=== PATIENT | male | born 1975 | race Hispanic/Latino ===

== ENCOUNTER 2020-08-06 05:45 | Day surgery (SDC) | payer MEDICAID ==
[2020-08-06] VITALS (7 sets, daily range): BP systolic 109–166; BP diastolic 79–106
[~2020-08-06] VITALS: Ht 167.6 cm; Wt 97.5 kg
[~2020-08-06 05:45] MED LIST: AMLO-257 PO; CABE0.5T2 PO; DIVA125C11 PO; EMPA25TA PO; INSLAN SQ; LEVO50CA4 PO; LOSA100T58 PO; LOVA20TA3 PO; MELO-108 PO; METF-526 PO; METO100T14 PO; OMEP40CA21 PO; SEMA1PEN3 SQ; SERT-440 PO; TEST200V22 IM
[2020-08-06] MEDS ORDERED: 0.9%NACL 1000ML 1,000 ML IV ONE (06:19)
[2020-08-06] MEDS ORDERED: LIDOCAINE HCL 1% 20 ML VIAL ONE (07:14)
[2020-08-06] MEDS ORDERED: PROPOFOL 10 MG/ML 20ML VIAL IV ONE (07:14)
== END 2020-08-06 08:00 | disposition home or self-care (01) ==
LOC: DAH 05:45 → ENDO 05:45
PROVIDERS: ATTEND Internal Medicine Gastroenterology
DX: K21.9 Gastro-esophageal reflux disease without esophagitis (principal); I12.9 Hypertensive chronic kidney disease with stage 1 through stage 4 chronic kidney disease, or unspecified chronic kidney disease; E11.22 Type 2 diabetes mellitus with diabetic chronic kidney disease; N18.9 Chronic kidney disease, unspecified; E03.9 Hypothyroidism, unspecified; F32.9 Major depressive disorder, single episode, unspecified; E78.5 Hyperlipidemia, unspecified; Z79.4 Long term (current) use of insulin; Z79.899 Other long term (current) drug therapy; Z20.822 Contact with and (suspected) exposure to COVID-19
CPT/HCPCS: 43239; 82948 ×2; 87635; 88305; 88342; A4215 ×2; A4221; A4222; A4223; A4606; A4620; A4657; A4663; C9803; J3490; J7030; J2704

== ENCOUNTER → 2020-08-28 | Outpatient (CLI) | payer MEDICAID | END | disposition home or self-care (01) | LOC: RAH 11:28 | PROVIDERS: ATTEND Internal Medicine Gastroenterology | DX: R11.0 Nausea (principal); R14.0 Abdominal distension (gaseous) | CPT/HCPCS: 78264; A9541 ==

== ENCOUNTER 2020-12-15 14:19 | Emergency (ER) | payer MEDICAID ==
[~2020-12-15] VITALS: Ht 165.1 cm; Wt 86.6 kg
[2020-12-15 14:59] LABS: BASOPHILS % (AUTO) 0.4 % (0.0-5.0); HEMATOCRIT 42.8 % (42-54); LYMPHOCYTES % (AUTO) 26.4 % (21.0-51.0); MEAN CORPUSCULAR HEMOGLOBIN 29.9 pg (27.0-33.0); MEAN CORPUSCULAR HGB CONC 36.4 g/dL (32.0-36.0); MONOCYTES % (AUTO) 7.3 % (3.0-13.0); NEUTROPHILS % (AUTO) 64.4 % (40.0-77.0); PLATELET COUNT (AUTO) 171 K/uL (130-400); RED BLOOD CELL COUNT(AUTO) 5.22 MIL/uL (4.50-6.20); RED CELL DISTRIBUTION WIDTH 14.4 % (11.0-15.5); WHITE BLOOD COUNT (AUTO) 7.4 K/uL (4.8-10.8)
[2020-12-15 15:08] LABS: CREATININE 1.5 mg/dL (0.5-1.5); POTASSIUM 3.2 mmol/L (3.5-5.1)
[2020-12-15 15:18] LABS: ALBUMIN 3.3 g/dL (3.5-5.0); BILIRUBIN,TOTAL 0.7 mg/dL (0.2-1.0); TOTAL PROTEIN, SERUM 7.4 g/dL (6.0-8.3)
[2020-12-15 15:26] LABS: B-TYPE NATRIURETIC PEPTIDE 23 pg/mL (0-100)
[2020-12-15 15:34] LABS: APPEARANCE,URINE Clear (CLEAR); BILIRUBIN,URINE Negative (NEGATIVE); COLOR,URINE Yellow (YELLOW); GLUCOSE, URINE (UA) >=1000 mg/dL (NEGATIVE); KETONES,URINE 15 mg/dL (NEGATIVE); LEUKOCYTE ESTERASE ,URINE Negative (NEGATIVE); NITRATE,URINE Negative (NEGATIVE); OCCULT BLOOD,URINE Negative (NEGATIVE); PH,URINE 6.5 (5.0-8.0); PROTEIN,URINE POS 2+ mg/dL (NEGATIVE)
[2020-12-15 15:42] LABS: AMPHET/METH SCREEN,URINE NEGATIVE (NEGATIVE); BARBITURATE SCREEN, URINE NEGATIVE (NEGATIVE); BENZODIAZEPINES SCREEN,URINE NEGATIVE (NEGATIVE); CANNABINOID SCREEN,URINE NEGATIVE (NEGATIVE); COCAINE SCREEN,URINE NEGATIVE (NEGATIVE); OPIATE SCREEN,URINE NEGATIVE (NEGATIVE); PHENCYCLIDINE SCREEN,URINE NEGATIVE (NEGATIVE)
[2020-12-15 15:44] LABS: BACTERIA,URINE Few /HPF (None Seen); RBC,URINE 0-1 /HPF (0-1); SQUAMOUS EPITHELIAL CELL,UR Rare /HPF (0-2); WBC,URINE 0-1 /HPF (0-1)
[2020-12-15] MEDS ORDERED: 0.9%NACL 1000ML 1,000 ML IV ONE (17:00)
[2020-12-15 17:30] VITALS: BP 115/78
[2020-12-15] MEDS ORDERED: MECLIZINE HCL 25 MG TABLET PO ONE (18:30)
== END 2020-12-15 18:00 | disposition home or self-care (01) ==
LOC: EDH 14:19
DX: E86.0 Dehydration (principal); E11.9 Type 2 diabetes mellitus without complications; I10 Essential (primary) hypertension; E66.9 Obesity, unspecified; Z91.19 Patient's noncompliance with other medical treatment and regimen; Z91.14 Patient's other noncompliance with medication regimen; Z79.1 Long term (current) use of non-steroidal anti-inflammatories (NSAID); Z79.899 Other long term (current) drug therapy; Z79.4 Long term (current) use of insulin
CPT/HCPCS: 36415; 70450; 71045; 80053; 80305; 81001; 82550; 83880; 84484; 85025; 93005; 96360; 99285; J7030

== ENCOUNTER 2024-07-15 13:15 | Emergency (ER) | payer BC ==
[~2024-07-15] VITALS: Ht 165.1 cm; Wt 83.5 kg
[~2024-07-15 13:15] MED LIST changes: -AMLO-257 PO; +AMLO5TAB4 PO; -CABE0.5T2 PO; -DIVA125C11 PO; -EMPA25TA PO; +HYDR25 PO; -INSLAN SQ; -LEVO50CA4 PO; +LISI40TA9 PO; -LOSA100T58 PO; -LOVA20TA3 PO; -MELO-108 PO; -METF-526 PO; -METO100T14 PO; +METO200T37 PO; -OMEP40CA21 PO; +SEMA0.258 SQ; -SEMA1PEN3 SQ; -SERT-440 PO; -TEST200V22 IM
--- NOTE | 2024-07-15 13:40 | NUR ---
patient states that he feels numbness to just below and above the level of the fistula that was inserted in April in his left antecubital area, started this am. fistula is not being used yet, it has not "matured", no bruit no thrill, no buldging noted in that area. patient does have "feeling" to the rest of that arm, numbness is just above and just below the antecubital area. 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 Salazar, mom is at bedside
--- NOTE | 2024-07-15 15:41 | HMCIMG ---
Exam Type: US VENOUS DOPPLER UNILATERAL Clinical Information: R/O OCCLUSION OR DVT Comparison: None Findings: The examination shows normal deep venous system. There is normal compressibility at all levels. There is no intraluminal clot. There is no occlusion. Adequate response is obtained on augmentation. Impression: No evidence of DVT.
[2024-07-15 15:45] VITALS: BP 148/76; PULSE 64; RESP 15; TEMP 97.6; O2SAT 99
--- NOTE | 2024-07-15 15:54 | ERN ---
General Chief Complaint: Upper Extremity Pain/Injury Stated Complaint: FISTULA FEELING NUMB IN RT ARM SINCE THIS AM History of Present Illness Initial Comments 49-year-old male came in for numbness and on the dialysis fistula site on right upper extremity. Patient otherwise has no concerns. Allergies: Coded Allergies: No Known Drug Allergies (Unverified Allergy, Unknown, 08/05/20) Home Meds Active Scripts Hydralazine HCl (Apresoline) 25 Mg Tab, 50 MG PO TID, #90 TAB 2 Refills Prov:VICTOR MANUEL DANIELS MD 04/15/24 Amlodipine Besylate (Norvasc 5Mg Tab) 5 Mg Tablet, 10 MG PO DAILY, #30 TAB 0 R efills Prov:VICTOR MANUEL DANIELS MD 04/15/24 Reported Medications Semaglutide (Ozempic) 0.25 Mg/0.368 Ml Pen.injctr, 0.25 MG SQ AD 04/08/24 Metoprolol Succinate (Metoprolol Succinate) 200 Mg Tab.er.24h, 100 MG PO DAILY, TAB 04/08/24 Lisinopril (Lisinopril) 40 Mg Tablet, 40 MG PO DAILY, TAB 04/08/24 Past Medical History Past Medical History: Diabetes-Type II, Hypertension, Renal Failure Past Surgical History: Other Surgical History Other: HERNIA REPAIR, FISTULA APRIL 2024 Family History Family History: Negative Social History Social History: Lives with family ROS Dictation CONSTITUTIONAL: Negative except for HPI HEAD/FACE: Negative except for HPI EENT: Negative except for HPI RESPIRATORY: Negative except for HPI GASTROINTESTINAL/ABDOMINAL: Negative except for HPI GENITOURINARY: Negative except for HPI MUSCULOSKELETAL: Negative except for HPI INTEGUMENTARY: Negative except for HPI NEUROLOGICAL/PSYCH: Negative except for HPI HEMATOLOGIC/LYMPHATIC: Negative except for HPI All Systems Negative, Except as noted above. 13 point review of systems assessed and all negative except for above. Physical Exam Physical Exam Dictation Vital Signs reviewed General Appearance: Alert, oriented x 3, no acute distress, well developed, nourished. Head and Face: non-traumatic. Eyes: PERRL, pink conjunctivas, eyelid no trauma, anterior chamber with arcus senilis. Ears: Pinnas intact and no signs of trauma or erythema ear canals clear and no discharge TM no erythema Nose: No discharge, no bleeding. Oropharynx: Mouth normal, tongue pink, pharynx clear,no erythema, tonsils no exudates, no abscesses noted, mucous membrane moist Neck: Supple, non-tender, no thyromegaly, no masses, no JVD, no bruits Breast:Deferred Chest:No tenderness, no crepitus, no paradoxical movement, no retractions Lungs:Clear, well-ventilated, symmetric, no rales, no wheezing, no rhonchi, no stridor, good breath sounds bilaterally Heart: Regular rate, regular rhythm, no murmur, no gallops Vascular: no peripheral edema, Abdomen: Soft, positive bowel sounds, nondistended, no guarding, nontender, no rebound, no masses no hepatomegaly, no splenomegaly, no West's sign, no hernias. Rectal: Deferred Genital: Deferred Neurological: Normal speech, motor function intact, sensory function intact Musculoskeletal: Neck nontender, full range of motion, back nontender, full range of motion, Extremities: nontender, full range of motion Skin: Color pink, dry, no turgor, no rash, no lacerations, no abrasions, no contusions. Lymphatic: Deferred MDM MDM: Differential diagnosis: Rationale: Tests considered and ordered secondary to shared decision making include: Previous outside records reviewed: Old ER visits. Risk of complication and/or morbidity or mortality of patient management: None Medications-Per medication reconciliation Need for hospitalization: Patient does not meet criteria for hospitalization. Need for emergency major/minor surgery: No There are no social concerns with this patient. Prescription drug management Prescriptions will include symptomatic care Patient's prior external medical records from other ER visits were reviewed by me as indicated. Prior testing and results from previous visits were reviewed. Prior tests were taken into account with medical decision making and resource utilization, independent historian/historians were used to obtain complete medical history. I independently interpreted the test that were performed, results were reviewed by me and considered findings on radiology if ordered. Medical management and examination interpretation discussions were had by me with other qualified healthcare professionals as indicated for the patient's care. ED Course Orders Procedure Category Date Status Time Us Venous Doppler US 07/15/24 Resulted Unilateral 14:06 Vital Signs Date Time Temp Pulse Resp B/P (MAP) Pulse Ox O2 Delivery O2 Flow Rate FiO2 07/15/24 13:28 98.2 68 16 176/98 99 Room Air 0 07/15/24 13:27 98.2 68 16 176/98 100 Room Air* 0 21 DX & DISP Disposition: Discharge Departure Impression: Primary Impression: Complication of AV dialysis fistula Condition: Stable Referrals: KILO SUAREZ MD (PCP) ZI BAREBR MD July 15, 2024 15:54
== END 2024-07-15 16:10 | disposition home or self-care (01) ==
LOC: EDH 13:15
DX: T82.9XXA Unspecified complication of cardiac and vascular prosthetic device, implant and graft, initial encounter (principal); E11.9 Type 2 diabetes mellitus without complications; I10 Essential (primary) hypertension; M79.601 Pain in right arm; Z79.899 Other long term (current) drug therapy; Z98.890 Other specified postprocedural states; Z99.2 Dependence on renal dialysis; Y83.2 Surgical operation with anastomosis, bypass or graft as the cause of abnormal reaction of the patient, or of later complication, without mention of misadventure at the time of the procedure
CPT/HCPCS: 93971; 99284